=== PATIENT | female | born 1980 | race Caucasian/White ===

== ENCOUNTER 2020-06-14 20:45 | Emergency (ER) | payer BC ==
--- NOTE | 2020-06-14 21:16 | ERPHSYRPT ---
- History of Present Illness Time Seen by Provider: 06/14/20 21:00 Source: patient Exam Limitations: no limitations Physician History: 40 years old morbidly obese female presented in the ER with chief complaint of laceration right fifth toe plantar aspect which he encountered while stepping into the strange earlier this afternoon. Patient does not know exactly what she stepped on. There was bleeding initially but stopped after applying pressure. She has minimal dull pain with movement. Minimal restricted range of motion. Unsure about tetanus status. Method of Injury: incised Occurred: this afternoon Quality: dullness Severity of Pain-Max: mild Severity of Pain-Current: mild Lower Extremities Pain: 5th toe: right Modifying Factors: Improves With: movement Associated Symptoms: none Allergies/Adverse Reactions: No Known Drug Allergies Allergy (Unverified 06/14/20 20:59) - Review of Systems Constitutional: No Symptoms Eyes: No Symptoms Ears, Nose, & Throat: No Symptoms Respiratory: No Symptoms Cardiac: No Symptoms Musculoskeletal: Injury Skin: Skin Lesions Neurological: No Symptoms Psychological: No Symptoms Endocrine: No Symptoms Hematologic/Lymphatic: No Symptoms Immunological/Allergic: No Symptoms - Nursing Vital Signs Nursing Vital Signs: Initial Vital Signs Temperature 98.8 F 06/14/20 21:01 Pulse Rate 89 06/14/20 21:01 Respiratory Rate 20 06/14/20 21:01 Blood Pressure 140/77 06/14/20 21:01 O2 Sat by Pulse Oximetry 96 06/14/20 21:01 Pain Scale Pain Intensity 4 - Physical Exam General Appearance: no apparent distress Neck Exam: normal inspection, supple, full range of motion Cardiovascular/Respiratory Exam: normal breath sounds, regular rate/rhythm Back Exam: normal inspection Foot Exam: right foot: abrasions/lacerations (2.5 cm laceration on the plantar aspect of fifth toe curved shaped. Mild limitation flexion.), pain, soft tissue tenderness, swelling, left foot: non-tender, normal inspection, normal range of motion, no evidence of injury Neuro/Tendon Exam: normal sensation, motor deficit, tendon function deficit Mental Status Exam: alert, oriented x 3, cooperative SpO2 Interpretation: normal O2 Delivery: Room Air Procedures - Laceration/Wound Repair Right Toe Wound Location: Right, foot Wound Length (cm): 2.5 Wound's Depth, Shape: into muscle Wound Explored: clean Irrigated: Yes Hibiclens Prep: Yes Anesthesia: local, 1% Lidocaine Wound Repaired With: sutures Suture Size/Type: 4-0 Number of Sutures: 4 Sterile Dressing Applied?: Yes Splint Applied?: Yes - Course Nursing assessment & vital signs reviewed: Yes Ordered Tests: Medication Summary Discontinued Medications Generic Name Dose Route Start Last Admin Trade Name Tommy PRN Reason Stop Dose Admin Diphtheria/Tetanus/Acell Pertussis 0.5 ml 06/14/20 21:41 06/14/20 21:50 Adacel Vial IM 06/14/20 21:42 0.5 ml .ONCE ONE Administration Diphtheria/Tetanus/Acell Pertussis Confirm 06/14/20 21:48 Adacel Vial Administered 06/14/20 21:49 Dose 0.5 ml IM .STK-MED ONE Lidocaine HCl Confirm 06/14/20 21:21 Xylocaine 1% Hcl 20 Ml Mdv Administered 06/14/20 21:22 Dose 1 ml .ROUTE .STK-MED ONE Trimethoprim/Sulfamethoxazole 1 tab 06/14/20 21:41 06/14/20 21:49 Bactrim Ds Tablet PO 06/14/20 21:42 1 tab STAT STA Administration Trimethoprim/Sulfamethoxazole Confirm 06/14/20 21:48 Bactrim Ds Tablet Administered 06/14/20 21:49 Dose 1 tab PO .STK-MED ONE - Progress Progress: improved Progress Note: 06/14/20 21:15 Patient has limited flexion. I believe she has some tendon injury. I have discussed with patient about tendon injury and she just wanted me to stitch the skin as she does not think it would affect much on her functionality. Tetanus is updated. She would be placed on Bactrim. Outpatient follow-up recommended. Counseled pt/family regarding: diagnosis, need for follow-up - Departure Departure Disposition: Home Clinical Impression: Laceration of toe Qualifiers: Encounter type: initial encounter Toe: lesser toe Damage to nail status: without damage Foreign body presence: without foreign body Laterality: right Qualified Code(s): S91.114A - Laceration without foreign body of right lesser toe(s) without damage to nail, initial encounter Condition: Stable Critical Care Time: No Referrals: MARIANA AMOS [Primary Care Provider] - Follow Up with PCP/3 days Instructions: Laceration Repair With Stitches (DC) Additional Instructions: Suture removal in 10 to 14 days. Follow-up with primary care for reevaluation in the next 3 to 4 days. Take Tylenol/ibuprofen as needed. Follow-up with PCP or return to ER for increasing pain swelling redness discharge/fever or chills. Prescriptions: Smz/Tmp Ds Tablet [Bactrim Ds Tablet] 1 udtab PO BID #14 tablet
[2020-06-14] MEDS ORDERED: XYLOCAINE 1% HCL 20 ML MDV ONE (21:21)
[2020-06-14] MEDS ORDERED: Adacel Vial IM ONE ×2 (21:41→21:48)
[2020-06-14] MEDS ORDERED: BACTRIM DS TABLET PO STA (21:41)
[2020-06-14] MEDS ORDERED: BACTRIM DS TABLET PO ONE (21:48)
[2020-06-14 22:05] VITALS: BP 148/87; PULSE 82; O2SAT 97
== END 2020-06-14 22:07 | disposition home or self-care (01) ==
LOC: ED 20:45
DX: S91.114A Laceration without foreign body of right lesser toe(s) without damage to nail, initial encounter (principal); W22.8XXA Striking against or struck by other objects, initial encounter; Y92.9 Unspecified place or not applicable
CPT/HCPCS: 90471; 90715; 99283; A9270-GY